=== PATIENT | female | born 1955 | race African-American/Black ===

== ENCOUNTER 2021-06-02 07:59 | Inpatient (IN) | payer BC, OTHER ==
[2021-06-02] VITALS (52 sets, daily range): BP systolic 107–179; BP diastolic 44–116
[~2021-06-02] VITALS: Ht 172.7 cm; Wt 81.6 kg
[2021-06-02] MEDS ORDERED: SODIUM CHLORIDE 0.9% 1,000 ML IV ONE (08:30)
[2021-06-02 08:40] LABS: BASOPHILS % 0.4 % (0.0-2.0); EOSINOPHILS % 0.2 % (0.0-5.0); HEMATOCRIT. 37.4 % (36.0-48.0); HEMOGLOBIN. 12.4 g/dL (12.0-16.0); MEAN CORPUSCULAR HEMOGLOBIN 29.9 pg (28.0-32.0); MEAN CORPUSCULAR VOLUME 90.3 fL (81.0-99.0); MEAN PLATELET VOLUME 8.1 fl (7.4-10.4); MONOCYTES % 3.7 % (2.0-8.0); NEUTROPHILS % 86.7 % (40.0-76.0); PLATELET 376 x1000/uL (130-400); RED BLOOD CELL COUNT 4.14 mill/uL (4.2-5.4); RED CELL DISTRIBUTION WIDTH 13.9 % (11.6-14.6)
[2021-06-02 08:45] LABS: CHLORIDE 100 mEq/L (98-107)
[2021-06-02] MEDS ORDERED: LABETALOL HCL 20MG/4ML CARPUJECT IV ONE (08:45)
[2021-06-02] MEDS ORDERED: LABETALOL HCL 100 MG in DEXT 5% WATER 80 ML IV STA (08:49)
[2021-06-02 08:51] LABS: INR 0.9; PROTHROMBIN TIME 10.2 sec (9.6-11.0)
[2021-06-02] MEDS ORDERED: LABETALOL HCL 100 MG in DEXT 5% WATER 80 ML IV PRN (09:00)
[2021-06-02] MEDS ORDERED: DEXAMETHASONE 10 MG/ML VIAL IV ONE (09:00)
[2021-06-02] MEDS ORDERED: MANNITOL 20% (20GM/100ML) BAG 500ML PREMIX IV ONE (09:00)
[2021-06-02] MEDS ORDERED: LEVETIRACETAM 1000MG PREMIX 100 ML IV ONE (09:00)
[2021-06-02] MEDS ORDERED: LABETALOL 5MG/ML SYR 20 MG/4 ML SYRINGE IV SCH (09:00)
[2021-06-02] MEDS ORDERED: NICARDIPINE 100 MG in SODIUM CHLORIDE 0.9% 60 ML IV STA (09:06)
[2021-06-02] MEDS ORDERED: MANNITOL 20% 500 ML IV SCH (09:15)
[2021-06-02] MEDS ORDERED: DILTIAZEM HCL 5MG/ML 5ML VIAL IV ONE (09:15)
[2021-06-02 09:44] LABS: CLARITY URINE CLEAR (CLEAR); COLOR URINE YELLOW (YELLOW); KETONES URINE NEGATIVE (NEGATIVE); LEUKOCYTE ESTERASE URINE NEGATIVE (NEGATIVE); NITRITE URINE NEGATIVE (NEGATIVE); OCCULT BLOOD URINE TRACE (NEGATIVE); PROTEIN URINE 4+ (NEGATIVE); SPECIFIC GRAVITY URINE 1.017 (1.005-1.030); UROBILINOGEN URINE 0.2 E.U./dL (0.2-1.0)
[2021-06-02] MEDS ORDERED: ONDANSETRON HCL 4MG/2ML INJ IV ONE (10:15)
[2021-06-02] MEDS: DEXT 5%/LACTATED RINGERS 1,000 ML IV SCH (10:29)
[2021-06-02] MEDS: LABETALOL 5MG/ML SYR 20 MG/4 ML SYRINGE IV PRN ×4 (11:47→21:26)
[2021-06-02] MEDS ORDERED: IPRATROPIUM/ALBUTEROL 0.5-3(2.5)MG/3ML NEB HHN PRN (12:00)
[2021-06-02] MEDS ORDERED: ONDANSETRON HCL 4MG/2ML INJ IV PRN (12:15)
[2021-06-02] MEDS ORDERED: ACETAMINOPHEN 650MG SUPP PR PRN (12:15)
[2021-06-02] MEDS ORDERED: IPRATROPIUM/ALBUTEROL 0.5-3(2.5)MG/3ML NEB NEB PRN (12:15)
[2021-06-02] MEDS ORDERED: NITROGLYCERIN 0.4MG TABLET SL SL PRN (12:15)
[2021-06-02] MEDS ORDERED: PIPERACILLIN/TAZ 3.375G PREMIX 50 ML IV NR (12:30)
[2021-06-02] MEDS: DEXAMETHASONE 4MG/ML 1ML VIAL IV SCH ×2 (12:35→18:13)
[2021-06-02 12:42] LABS: *BARBITURATES SCREEN URINE NEGATIVE (NEGATIVE)
[2021-06-02 12:43] LABS: *AMPHETAMINES SCREEN URINE NEGATIVE (NEGATIVE); *BENZODIAZEPINES SCREEN URINE NEGATIVE (NEGATIVE); *COCAINE SCREEN URINE NEGATIVE (NEGATIVE); METHADONE URINE SCREEN NEGATIVE (NEGATIVE); OPIATES URINE SCREEN NEGATIVE (NEGATIVE); PHENCYCLIDINE URINE SCREEN NEGATIVE (NEGATIVE)
[2021-06-02 12:44] LABS: CANNABINOID URINE SCREEN NEGATIVE (NEGATIVE)
[2021-06-02 13:21] LABS: T4 FREE 1.05 ng/dL (0.76-1.46)
[2021-06-02 14:38] LABS: FOLIC ACID (FOLATE) SERUM 14.3 ng/mL (>5.38)
[2021-06-02] MEDS: NICARDIPINE 100 MG in SODIUM CHLORIDE 0.9% 60 ML IV SCH ×2 (14:47→21:43)
[2021-06-02 17:02] LABS: CREATINE KINASE 311 IU/L (26-192)
[2021-06-02 17:03] LABS: CREATINE KINASE MB FRACTION 2.2 ng/mL (0.5-3.6)
[2021-06-02] MEDS: MORPHINE SULFATE 2 MG/ML CPJ (NOT FOR IM USE) IV PRN ×2 (17:13→21:17)
[2021-06-02] MEDS ORDERED: NICARDIPINE 100 MG in SODIUM CHLORIDE 0.9% 60 ML IV PRN (20:00)
[2021-06-02] MEDS ORDERED: LEVETIRACETAM 500MG PREMIX 100 ML IV SCH (21:00)
[2021-06-02] MEDS ORDERED: DEXTROSE 50% WATER 50ML SYRINGE IV PRN (21:00)
[2021-06-02] MEDS ORDERED: PIPERACILLIN/TAZOBACTAM 3.375 G in DEXTROSE 5% WATER 50 ML IV SCH (21:00)
[2021-06-02] MEDS: BLOOD SUGAR DIAGNOSTIC STRIP TEST SCH (21:00)
[2021-06-02] MEDS ORDERED: MIDAZOLAM HCL 100 MG in SODIUM CHLORIDE 0.9% 80 ML IV PRN (21:45)
[2021-06-02] MEDS ORDERED: FENTANYL CITRATE/PF 2,500 MCG in SODIUM CHLORIDE 0.9% 200 ML IV PRN (21:45)
[2021-06-02] MEDS: NICARDIPINE 100 MG in SODIUM CHLORIDE 0.9% 60 ML IV PRN ×2 (21:45→22:08)
[2021-06-02] MEDS ORDERED: PHENYLEPHRINE 100 MG in DEXT 5% WATER 240 ML IV PRN (21:45)
[2021-06-02] MEDS ORDERED: ETOMIDATE 2MG/ML 10ML VIAL IV NR (22:00)
[2021-06-02] MEDS ORDERED: VECURONIUM BROMIDE 10 MG/VIAL IV NR (22:00)
[2021-06-02] MEDS: PROPOFOL 10MG/ML 100ML 100 ML IV PRN (22:05)
[2021-06-02] MEDS: INSULIN LISPRO 100 UNITS/ML SUBCUT SCH (22:44)
[2021-06-02 23:05] LABS: BG BASE EXCESS -5.7 mmol/L (-2.0-2.0); BG CARBOXYHEMOGLOBIN 0.3 % (0.5-1.5); BG FRACTION INSPIRED OXYGEN 40; BG HCO3 ACT 19.4 mmol/L (22.0-26.0); BG METHEMOGLOBIN 0.3 % (0.0-1.5); BG OXYHEMOGLOBIN 96.4 % (94.0-97.0); BG PCO2 36.4 mmHg (35.0-45.0); BG PH 7.344 (7.350-7.450); BG PO2 96.7 mmHg (75.0-100.0); BG SAMPLE SITE RIGHT RADIAL; BG TOTAL HEMOGLOBIN 11.7 g/dL (12.0-18.0); BG TOTAL RESPIRATORY RATE 25 b/min; BG VENT MODE VENT - AC
[2021-06-02] MEDS ORDERED: MORPHINE SULFATE 2 MG/ML CPJ (NOT FOR IM USE) IV SCH (23:15)
[2021-06-03] VITALS (94 sets, daily range): BP systolic 118–149; BP diastolic 54–75
[2021-06-03 00:32] LABS: CREATINE KINASE MB FRACTION 3.4 ng/mL (0.5-3.6)
[2021-06-03] MEDS: DEXAMETHASONE 4MG/ML 1ML VIAL IV SCH ×2 (00:46→05:59)
[2021-06-03] MEDS ORDERED: AMLO1TAB15 MT (02:04)
[2021-06-03] MEDS: LABETALOL 5MG/ML SYR 20 MG/4 ML SYRINGE IV PRN ×2 (02:10→05:41)
[2021-06-03] MEDS: MORPHINE SULFATE 2 MG/ML CPJ (NOT FOR IM USE) IV PRN ×3 (02:10→14:15)
[2021-06-03] MEDS: DEXT 5%/LACTATED RINGERS 1,000 ML IV SCH (02:16)
[2021-06-03] MEDS: PROPOFOL 10MG/ML 100ML 100 ML IV PRN ×5 (02:20→20:34)
[2021-06-03] MEDS: NICARDIPINE 100 MG in SODIUM CHLORIDE 0.9% 60 ML IV PRN ×3 (05:21→20:04)
[2021-06-03 05:55] LABS: CHLORIDE 97 mEq/L (98-107)
[2021-06-03 06:00] LABS: BASOPHILS % 0.1 % (0.0-2.0); EOSINOPHILS % 0.3 % (0.0-5.0); HEMOGLOBIN. 10.8 g/dL (12.0-16.0); LYMPHOCYTES % 5.1 % (20.0-50.0); MEAN CORPUSCULAR HEMOGLOBIN 30.2 pg (28.0-32.0); MEAN CORPUSCULAR VOLUME 91.8 fL (81.0-99.0); MEAN PLATELET VOLUME 9.5 fl (7.4-10.4); NEUTROPHILS % 88.5 % (40.0-76.0); PLATELET 309 x1000/uL (130-400); RED BLOOD CELL COUNT 3.59 mill/uL (4.2-5.4); RED CELL DISTRIBUTION WIDTH 14.2 % (11.6-14.6)
[2021-06-03 06:05] LABS: PHOSPHORUS 2.7 mg/dL (2.5-4.9)
[2021-06-03 06:07] LABS: LDL CHOLESTEROL 117 mg/dL (5-100)
[2021-06-03 06:09] LABS: HDL CHOLESTEROL 66 mg/dL (40-59)
[2021-06-03] MEDS: BLOOD SUGAR DIAGNOSTIC STRIP TEST SCH ×4 (06:09→21:00)
[2021-06-03] MEDS: INSULIN LISPRO 100 UNITS/ML SUBCUT SCH ×4 (06:12→21:12)
[2021-06-03 08:12] LABS: BG BASE EXCESS -6.2 mmol/L (-2.0-2.0); BG CARBOXYHEMOGLOBIN 0.3 % (0.5-1.5); BG DEOXYHEMOGLOBIN 4.6 % (0.0-5.0); BG HCO3 ACT 18.5 mmol/L (22.0-26.0); BG METHEMOGLOBIN 0.3 % (0.0-1.5); BG OXYGEN SATURATION 95.4 % (92.0-98.5); BG OXYHEMOGLOBIN 94.8 % (94.0-97.0); BG PCO2 33.5 mmHg (35.0-45.0); BG PO2 78.7 mmHg (75.0-100.0); BG SAMPLE SITE RIGHT RADIAL; BG TOTAL HEMOGLOBIN 10.4 g/dL (12.0-18.0); BG VENT MODE VENT - AC
[2021-06-03] MEDS ORDERED: IPRATROPIUM/ALBUTEROL 0.5-3(2.5)MG/3ML NEB HHN PRN (08:15)
[2021-06-03] MEDS ORDERED: LIDOCAINE HCL 1% 20ML VIAL (Pyxis) INJ ONE (08:29)
[2021-06-03] MEDS: LEVETIRACETAM 500MG PREMIX 100 ML IV SCH ×2 (08:37→20:59)
[2021-06-03] MEDS: PIPERACILLIN/TAZOBACTAM 3.375 G in DEXTROSE 5% WATER 50 ML IV SCH ×2 (08:37→20:59)
[2021-06-03] MEDS ORDERED: INSULIN GLARGINE UD 100 UNITS/ML SYR SUBCUT SCH (10:00)
[2021-06-03] MEDS ORDERED: NALOXONE HCL 0.4MG/ML VIAL IV PRN (12:15)
[2021-06-03] MEDS: IPRATROPIUM/ALBUTEROL 0.5-3(2.5)MG/3ML NEB HHN SCH ×2 (12:27→20:24)
[2021-06-03] MEDS: SODIUM CHLORIDE 0.45% 1,000 ML IV SCH (12:31)
[2021-06-03] MEDS ORDERED: VECURONIUM BROMIDE 10 MG/VIAL IV ONE (13:54)
[2021-06-03] MEDS ORDERED: ETOMIDATE 2MG/ML 10ML VIAL IV ONE (13:54)
[2021-06-03 14:57] LABS: HEPATITIS B SURFACE ANTIGEN NEGATIVE
[2021-06-03] MEDS ORDERED: INSULIN GLARGINE UD 100 UNITS/ML SYR SUBCUT NR (15:30)
[2021-06-03] MEDS: ACETAMINOPHEN 650MG SUPP PR PRN (17:19)
[2021-06-04] VITALS (84 sets, daily range): BP systolic 116–149; BP diastolic 40–82
[2021-06-04] MEDS: MORPHINE SULFATE 2 MG/ML CPJ (NOT FOR IM USE) IV PRN ×3 (00:26→05:25)
[2021-06-04] MEDS: LABETALOL 5MG/ML SYR 20 MG/4 ML SYRINGE IV PRN ×3 (00:26→05:25)
[2021-06-04] MEDS: IPRATROPIUM/ALBUTEROL 0.5-3(2.5)MG/3ML NEB HHN SCH ×4 (00:39→20:15)
[2021-06-04] MEDS ORDERED: PROPOFOL 10MG/ML 100ML 100 ML IV PRN ×3 (00:45→09:09)
[2021-06-04] MEDS: NICARDIPINE 100 MG in SODIUM CHLORIDE 0.9% 60 ML IV PRN ×3 (05:24→20:17)
[2021-06-04] MEDS: BLOOD SUGAR DIAGNOSTIC STRIP TEST SCH ×3 (06:05→17:41)
[2021-06-04 06:09] LABS: HEMATOCRIT. 32.2 % (36.0-48.0); HEMOGLOBIN. 10.8 g/dL (12.0-16.0); MEAN CORPUSCULAR HEMOGLOBIN 30.8 pg (28.0-32.0); MEAN CORPUSCULAR VOLUME 91.3 fL (81.0-99.0); MEAN PLATELET VOLUME 8.7 fl (7.4-10.4); PLATELET 277 x1000/uL (130-400); RED BLOOD CELL COUNT 3.52 mill/uL (4.2-5.4); RED CELL DISTRIBUTION WIDTH 14.3 % (11.6-14.6)
[2021-06-04] MEDS: INSULIN LISPRO 100 UNITS/ML SUBCUT SCH ×3 (06:12→17:46)
[2021-06-04] MEDS: PIPERACILLIN/TAZOBACTAM 3.375 G in DEXTROSE 5% WATER 50 ML IV SCH ×2 (08:39→20:18)
[2021-06-04] MEDS: LEVETIRACETAM 500MG PREMIX 100 ML IV SCH ×2 (08:39→20:17)
[2021-06-04] MEDS: PANTOPRAZOLE SODIUM 40 MG/VIAL IV SCH ×2 (08:39→09:00)
[2021-06-04] MEDS: SODIUM CHLORIDE 0.45% 1,000 ML IV SCH (08:40)
[2021-06-04 08:52] LABS: BG DEOXYHEMOGLOBIN 5.6 % (0.0-5.0); BG FRACTION INSPIRED OXYGEN 40; BG METHEMOGLOBIN 0.2 % (0.0-1.5); BG OXYGEN SATURATION 94.4 % (92.0-98.5); BG OXYHEMOGLOBIN 94.2 % (94.0-97.0); BG PCO2 41.5 mmHg (35.0-45.0); BG PH 7.301 (7.350-7.450); BG PO2 75.4 mmHg (75.0-100.0); BG SAMPLE SITE RIGHT RADIAL; BG TOTAL HEMOGLOBIN 12.4 g/dL (12.0-18.0); BG VENT MODE VENT - AC
[2021-06-04 10:00] LABS: PLATELET ESTIMATE NORMAL
[2021-06-04] MEDS: FUROSEMIDE 40MG/4ML VIAL IVP SCH (10:14)
[2021-06-04] MEDS: INSULIN GLARGINE UD 100 UNITS/ML SYR SUBCUT SCH (10:17)
[2021-06-04] MEDS ORDERED: INSULIN LISPRO 100 UNITS/ML SUBCUT SCH (17:45)
[2021-06-05] VITALS (91 sets, daily range): BP systolic 121–160; BP diastolic 50–74
[2021-06-05] MEDS: IPRATROPIUM/ALBUTEROL 0.5-3(2.5)MG/3ML NEB HHN SCH ×4 (00:16→20:46)
[2021-06-05] MEDS: INSULIN LISPRO 100 UNITS/ML SUBCUT SCH ×5 (00:28→23:25)
[2021-06-05] MEDS: BLOOD SUGAR DIAGNOSTIC STRIP TEST SCH ×5 (00:29→23:19)
[2021-06-05] MEDS: LABETALOL 5MG/ML SYR 20 MG/4 ML SYRINGE IV PRN ×2 (01:58→14:35)
[2021-06-05] MEDS: NICARDIPINE 100 MG in SODIUM CHLORIDE 0.9% 60 ML IV PRN ×4 (02:05→22:13)
[2021-06-05] MEDS: MORPHINE SULFATE 2 MG/ML CPJ (NOT FOR IM USE) IV PRN ×5 (03:30→22:59)
[2021-06-05] MEDS: SODIUM CHLORIDE 0.45% 1,000 ML IV SCH (06:21)
[2021-06-05 08:09] LABS: ANTI-NUCLEAR ANTIBODIES DIRECT Negative (Negative)
[2021-06-05 08:16] LABS: BG BASE EXCESS 1.2 mmol/L (-2.0-2.0); BG CARBOXYHEMOGLOBIN 0.1 % (0.5-1.5); BG DEOXYHEMOGLOBIN 3.1 % (0.0-5.0); BG HCO3 ACT 25.5 mmol/L (22.0-26.0); BG METHEMOGLOBIN 0.1 % (0.0-1.5); BG OXYGEN SATURATION 96.9 % (92.0-98.5); BG OXYHEMOGLOBIN 96.7 % (94.0-97.0); BG PCO2 39.4 mmHg (35.0-45.0); BG PH 7.429 (7.350-7.450); BG PO2 89.6 mmHg (75.0-100.0); BG SAMPLE SITE RIGHT RADIAL; BG TOTAL HEMOGLOBIN 10.9 g/dL (12.0-18.0); BG TOTAL RESPIRATORY RATE 17 b/min; BG VENT MODE VENT - AC
[2021-06-05] MEDS: PANTOPRAZOLE SODIUM 40 MG/VIAL IV SCH (08:25)
[2021-06-05] MEDS: FUROSEMIDE 40MG/4ML VIAL IVP SCH (08:25)
[2021-06-05] MEDS: PIPERACILLIN/TAZOBACTAM 3.375 G in DEXTROSE 5% WATER 50 ML IV SCH ×2 (08:25→21:59)
[2021-06-05] MEDS: LEVETIRACETAM 500MG PREMIX 100 ML IV SCH ×2 (08:35→22:01)
[2021-06-05] MEDS: DEXT 5%/LACTATED RINGERS 1,000 ML IV SCH (10:31)
[2021-06-05] MEDS: INSULIN GLARGINE UD 100 UNITS/ML SYR SUBCUT SCH (10:32)
[2021-06-05 11:19] LABS: HEMATOCRIT. 31.1 % (36.0-48.0); HEMOGLOBIN. 10.2 g/dL (12.0-16.0); MEAN CORPUSCULAR HEMOGLOBIN 29.7 pg (28.0-32.0); MEAN CORPUSCULAR VOLUME 90.6 fL (81.0-99.0); MEAN PLATELET VOLUME 8.6 fl (7.4-10.4); PLATELET 276 x1000/uL (130-400); RED BLOOD CELL COUNT 3.44 mill/uL (4.2-5.4); RED CELL DISTRIBUTION WIDTH 13.7 % (11.6-14.6)
[2021-06-05 12:12] LABS: PLATELET ESTIMATE NORMAL
[2021-06-06] VITALS (95 sets, daily range): BP systolic 105–153; BP diastolic 54–90
[2021-06-06] MEDS: IPRATROPIUM/ALBUTEROL 0.5-3(2.5)MG/3ML NEB HHN SCH ×4 (00:42→20:49)
[2021-06-06] MEDS: LABETALOL 5MG/ML SYR 20 MG/4 ML SYRINGE IV PRN ×2 (02:51→18:54)
[2021-06-06] MEDS: ACETAMINOPHEN 650MG SUPP PR PRN (03:00)
[2021-06-06] MEDS: MORPHINE SULFATE 2 MG/ML CPJ (NOT FOR IM USE) IV PRN (04:46)
[2021-06-06 05:23] LABS: HEMATOCRIT. 29.7 % (36.0-48.0); HEMOGLOBIN. 10.2 g/dL (12.0-16.0); MEAN CORPUSCULAR HEMOGLOBIN 30.8 pg (28.0-32.0); MEAN CORPUSCULAR VOLUME 89.9 fL (81.0-99.0); MEAN PLATELET VOLUME 8.4 fl (7.4-10.4); PLATELET 271 x1000/uL (130-400); RED BLOOD CELL COUNT 3.31 mill/uL (4.2-5.4)
[2021-06-06] MEDS: BLOOD SUGAR DIAGNOSTIC STRIP TEST SCH ×3 (06:00→17:02)
[2021-06-06] MEDS: DEXT 5%/LACTATED RINGERS 1,000 ML IV SCH (06:30)
[2021-06-06] MEDS: INSULIN LISPRO 100 UNITS/ML SUBCUT SCH ×3 (07:45→17:05)
[2021-06-06 08:06] LABS: PLATELET ESTIMATE NORMAL
[2021-06-06] MEDS: FUROSEMIDE 40MG/4ML VIAL IVP SCH (08:06)
[2021-06-06] MEDS: PANTOPRAZOLE SODIUM 40 MG/VIAL IV SCH (08:06)
[2021-06-06] MEDS: PIPERACILLIN/TAZOBACTAM 3.375 G in DEXTROSE 5% WATER 50 ML IV SCH ×2 (08:07→20:58)
[2021-06-06] MEDS: LEVETIRACETAM 500MG PREMIX 100 ML IV SCH ×2 (08:07→20:53)
[2021-06-06 08:37] LABS: BG BASE EXCESS -0.5 mmol/L (-2.0-2.0); BG FRACTION INSPIRED OXYGEN 40; BG HCO3 ACT 23.7 mmol/L (22.0-26.0); BG PCO2 37.8 mmHg (35.0-45.0); BG PH 7.416 (7.350-7.450); BG PO2 77.2 mmHg (75.0-100.0); BG SAMPLE SITE RIGHT RADIAL; BG VENT MODE VENT - AC
[2021-06-06] MEDS ORDERED: HYDRALAZINE 20MG/ML VIAL IV SCH (10:30)
[2021-06-06] MEDS: HYDRALAZINE HCL 50MG TABLET PO SCH ×2 (11:41→23:18)
[2021-06-06] MEDS: METOPROLOL TARTRATE 25MG TABLET PO SCH ×2 (11:41→20:58)
[2021-06-06] MEDS: AMLODIPINE 10MG TABLET PO SCH (11:41)
[2021-06-06] MEDS: NICARDIPINE 100 MG in SODIUM CHLORIDE 0.9% 60 ML IV PRN (12:58)
[2021-06-06] MEDS: CLONIDINE HCL 0.3MG/24HR PATCH TD SCH (14:17)
[2021-06-07] VITALS (96 sets, daily range): BP systolic 114–166; BP diastolic 58–84
[2021-06-07] MEDS: IPRATROPIUM/ALBUTEROL 0.5-3(2.5)MG/3ML NEB HHN SCH ×4 (00:39→21:01)
[2021-06-07] MEDS: MORPHINE SULFATE 2 MG/ML CPJ (NOT FOR IM USE) IV PRN ×2 (00:59→10:46)
[2021-06-07] MEDS: INSULIN LISPRO 100 UNITS/ML SUBCUT SCH ×5 (01:12→23:58)
[2021-06-07] MEDS: ACETAMINOPHEN 650MG/20.3ML UDC NG PRN (04:59)
[2021-06-07] MEDS: HYDRALAZINE HCL 50MG TABLET PO SCH ×3 (05:00→21:19)
[2021-06-07 05:16] LABS: HEMATOCRIT. 30.2 % (36.0-48.0); HEMOGLOBIN. 9.9 g/dL (12.0-16.0); MEAN CORPUSCULAR HEMOGLOBIN 29.6 pg (28.0-32.0); MEAN CORPUSCULAR VOLUME 90.4 fL (81.0-99.0); MEAN PLATELET VOLUME 8.5 fl (7.4-10.4); PLATELET 290 x1000/uL (130-400); RED BLOOD CELL COUNT 3.34 mill/uL (4.2-5.4); RED CELL DISTRIBUTION WIDTH 13.8 % (11.6-14.6)
[2021-06-07] MEDS: LABETALOL 5MG/ML SYR 20 MG/4 ML SYRINGE IV PRN (06:36)
[2021-06-07] MEDS: BLOOD SUGAR DIAGNOSTIC STRIP TEST SCH ×5 (06:46→23:58)
[2021-06-07 07:52] LABS: BG BASE EXCESS 2.2 mmol/L (-2.0-2.0); BG CARBOXYHEMOGLOBIN 0.3 % (0.5-1.5); BG DEOXYHEMOGLOBIN 4.1 % (0.0-5.0); BG HCO3 ACT 26.4 mmol/L (22.0-26.0); BG METHEMOGLOBIN 0.2 % (0.0-1.5); BG OXYGEN SATURATION 95.9 % (92.0-98.5); BG OXYHEMOGLOBIN 95.4 % (94.0-97.0); BG PCO2 39.9 mmHg (35.0-45.0); BG PH 7.439 (7.350-7.450); BG PO2 82.2 mmHg (75.0-100.0); BG SAMPLE SITE RIGHT RADIAL; BG TOTAL HEMOGLOBIN 11.6 g/dL (12.0-18.0); BG VENT MODE VENT - AC
[2021-06-07] MEDS: PIPERACILLIN/TAZOBACTAM 3.375 G in DEXTROSE 5% WATER 50 ML IV SCH ×2 (08:45→21:19)
[2021-06-07 08:53] LABS: PLATELET ESTIMATE NORMAL
[2021-06-07] MEDS: LEVETIRACETAM 500MG PREMIX 100 ML IV SCH ×2 (08:54→20:09)
[2021-06-07] MEDS: PANTOPRAZOLE SODIUM 40 MG/VIAL IV SCH (08:56)
[2021-06-07] MEDS: AMLODIPINE 10MG TABLET PO SCH (08:57)
[2021-06-07] MEDS: FUROSEMIDE 40MG/4ML VIAL IVP SCH (08:57)
[2021-06-07] MEDS: METOPROLOL TARTRATE 25MG TABLET PO SCH ×2 (08:57→20:36)
[2021-06-07] MEDS: INSULIN GLARGINE UD 100 UNITS/ML SYR SUBCUT SCH (09:18)
[2021-06-07] MEDS: NICARDIPINE 100 MG in SODIUM CHLORIDE 0.9% 60 ML IV PRN (20:37)
[2021-06-08] VITALS (94 sets, daily range): BP systolic 116–162; BP diastolic 53–86
[2021-06-08] MEDS: IPRATROPIUM/ALBUTEROL 0.5-3(2.5)MG/3ML NEB HHN SCH ×4 (00:33→20:24)
[2021-06-08] MEDS: ACETAMINOPHEN 650MG/20.3ML UDC NG PRN (01:06)
[2021-06-08] MEDS: LABETALOL 5MG/ML SYR 20 MG/4 ML SYRINGE IV PRN ×2 (05:18→20:00)
[2021-06-08] MEDS: HYDRALAZINE HCL 50MG TABLET PO SCH ×3 (05:19→21:01)
[2021-06-08 05:50] LABS: HEMATOCRIT. 32.1 % (36.0-48.0); HEMOGLOBIN. 10.7 g/dL (12.0-16.0); MEAN CORPUSCULAR HEMOGLOBIN 30.4 pg (28.0-32.0); MEAN CORPUSCULAR VOLUME 91.3 fL (81.0-99.0); MEAN PLATELET VOLUME 8.4 fl (7.4-10.4); PLATELET 328 x1000/uL (130-400); RED BLOOD CELL COUNT 3.51 mill/uL (4.2-5.4); RED CELL DISTRIBUTION WIDTH 14.2 % (11.6-14.6)
[2021-06-08 06:02] LABS: PHOSPHORUS 5.9 mg/dL (2.5-4.9)
[2021-06-08] MEDS: BLOOD SUGAR DIAGNOSTIC STRIP TEST SCH ×4 (06:42→23:25)
[2021-06-08] MEDS: INSULIN LISPRO 100 UNITS/ML SUBCUT SCH ×4 (06:47→23:26)
[2021-06-08] MEDS: NICARDIPINE 100 MG in SODIUM CHLORIDE 0.9% 60 ML IV PRN ×3 (06:53→21:06)
[2021-06-08 07:34] LABS: BG BASE EXCESS 3.9 mmol/L (-2.0-2.0); BG CARBOXYHEMOGLOBIN 0.1 % (0.5-1.5); BG DEOXYHEMOGLOBIN 1.7 % (0.0-5.0); BG HCO3 ACT 28.6 mmol/L (22.0-26.0); BG METHEMOGLOBIN 0.1 % (0.0-1.5); BG OXYGEN SATURATION 98.3 % (92.0-98.5); BG OXYHEMOGLOBIN 98.1 % (94.0-97.0); BG PCO2 43.5 mmHg (35.0-45.0); BG PH 7.436 (7.350-7.450); BG PO2 118.3 mmHg (75.0-100.0); BG SAMPLE SITE RIGHT RADIAL; BG TOTAL HEMOGLOBIN 12.4 g/dL (12.0-18.0); BG VENT MODE VENT - SIMV
[2021-06-08 07:37] LABS: PLATELET ESTIMATE NORMAL
[2021-06-08] MEDS: PANTOPRAZOLE SODIUM 40 MG/VIAL IV SCH (08:13)
[2021-06-08] MEDS: AMLODIPINE 10MG TABLET PO SCH (08:13)
[2021-06-08] MEDS: LEVETIRACETAM 500MG PREMIX 100 ML IV SCH ×2 (08:13→20:00)
[2021-06-08] MEDS: CALCIUM ACETATE 667MG CAPSULE PO SCH ×3 (08:13→17:56)
[2021-06-08] MEDS: METOPROLOL TARTRATE 25MG TABLET PO SCH ×2 (08:13→20:00)
[2021-06-08] MEDS: INSULIN GLARGINE UD 100 UNITS/ML SYR SUBCUT SCH ×2 (10:00→21:00)
[2021-06-08 12:02] LABS: BG BASE EXCESS 2.4 mmol/L (-2.0-2.0); BG CARBOXYHEMOGLOBIN 0.4 % (0.5-1.5); BG DEOXYHEMOGLOBIN 2.3 % (0.0-5.0); BG HCO3 ACT 27.8 mmol/L (22.0-26.0); BG METHEMOGLOBIN 0.2 % (0.0-1.5); BG OXYGEN SATURATION 97.7 % (92.0-98.5); BG OXYHEMOGLOBIN 97.1 % (94.0-97.0); BG PCO2 46.4 mmHg (35.0-45.0); BG PH 7.396 (7.350-7.450); BG PO2 103.7 mmHg (75.0-100.0); BG SAMPLE SITE RIGHT RADIAL; BG TOTAL HEMOGLOBIN 12.2 g/dL (12.0-18.0); BG TOTAL RESPIRATORY RATE 13 b/min; BG VENT MODE VENT - CPAP
[2021-06-08] MEDS: HYDRALAZINE 20MG/ML VIAL IV PRN ×2 (15:51→22:12)
[2021-06-09] VITALS (96 sets, daily range): BP systolic 113–186; BP diastolic 39–85
[2021-06-09] MEDS: LABETALOL 5MG/ML SYR 20 MG/4 ML SYRINGE IV PRN (00:59)
[2021-06-09] MEDS: IPRATROPIUM/ALBUTEROL 0.5-3(2.5)MG/3ML NEB HHN SCH ×4 (01:06→20:27)
[2021-06-09] MEDS: NICARDIPINE 100 MG in SODIUM CHLORIDE 0.9% 60 ML IV PRN ×3 (04:46→18:18)
[2021-06-09] MEDS: HYDRALAZINE 20MG/ML VIAL IV PRN ×2 (04:48→12:02)
[2021-06-09 05:28] LABS: HEMATOCRIT. 33.9 % (36.0-48.0); HEMOGLOBIN. 11.1 g/dL (12.0-16.0); MEAN CORPUSCULAR VOLUME 91.2 fL (81.0-99.0); MEAN PLATELET VOLUME 8.4 fl (7.4-10.4); PLATELET 380 x1000/uL (130-400); RED BLOOD CELL COUNT 3.72 mill/uL (4.2-5.4); RED CELL DISTRIBUTION WIDTH 14.1 % (11.6-14.6)
[2021-06-09] MEDS: CALCIUM ACETATE 667MG CAPSULE PO SCH ×3 (06:07→17:05)
[2021-06-09] MEDS: HYDRALAZINE HCL 50MG TABLET PO SCH (06:18)
[2021-06-09] MEDS: BLOOD SUGAR DIAGNOSTIC STRIP TEST SCH ×3 (06:18→17:50)
[2021-06-09] MEDS: INSULIN LISPRO 100 UNITS/ML SUBCUT SCH ×3 (06:19→17:49)
[2021-06-09] MEDS: LEVETIRACETAM 500MG PREMIX 100 ML IV SCH ×2 (08:20→21:50)
[2021-06-09] MEDS: PANTOPRAZOLE SODIUM 40 MG/VIAL IV SCH (08:20)
[2021-06-09] MEDS: METOPROLOL TARTRATE 25MG TABLET PO SCH (08:21)
[2021-06-09] MEDS: AMLODIPINE 10MG TABLET PO SCH (08:22)
[2021-06-09 09:26] LABS: PLATELET ESTIMATE NORMAL
[2021-06-09] MEDS ORDERED: ALTEPLASE 2MG/VIAL ITC NR ×2 (09:45→10:15)
[2021-06-09] MEDS: INSULIN GLARGINE UD 100 UNITS/ML SYR SUBCUT SCH (10:02)
[2021-06-09] MEDS ORDERED: HYDRALAZINE HCL 100MG TABLET PO SCH (14:00)
[2021-06-09] MEDS: LACTULOSE 20G/30ML UDC NG PRN ×2 (17:33→22:14)
[2021-06-09] MEDS ORDERED: MINOXIDIL 2.5MG TABLET PO SCH (21:00)
[2021-06-09] MEDS: HYDRALAZINE HCL 100MG TABLET NG SCH (21:49)
[2021-06-09] MEDS: ACETAMINOPHEN 650MG/20.3ML UDC NG PRN (21:54)
[2021-06-09] MEDS: METOPROLOL TARTRATE 25MG TABLET NG SCH (22:15)
[2021-06-09] MEDS: MINOXIDIL 2.5MG TABLET NG SCH (22:57)
[2021-06-10] VITALS (48 sets, daily range): BP systolic 95–161; BP diastolic 38–78
[2021-06-10] MEDS: BLOOD SUGAR DIAGNOSTIC STRIP TEST SCH ×4 (00:58→17:36)
[2021-06-10] MEDS: INSULIN GLARGINE UD 100 UNITS/ML SYR SUBCUT SCH ×3 (00:59→21:54)
[2021-06-10] MEDS: INSULIN LISPRO 100 UNITS/ML SUBCUT SCH ×7 (01:00→17:51)
[2021-06-10] MEDS: NICARDIPINE 100 MG in SODIUM CHLORIDE 0.9% 60 ML IV PRN (01:05)
[2021-06-10] MEDS: IPRATROPIUM/ALBUTEROL 0.5-3(2.5)MG/3ML NEB HHN SCH ×4 (02:15→20:00)
[2021-06-10 05:56] LABS: HEMATOCRIT. 32.7 % (36.0-48.0); HEMOGLOBIN. 10.7 g/dL (12.0-16.0); MEAN CORPUSCULAR VOLUME 91.8 fL (81.0-99.0); PLATELET 431 x1000/uL (130-400); RED BLOOD CELL COUNT 3.56 mill/uL (4.2-5.4); RED CELL DISTRIBUTION WIDTH 14.1 % (11.6-14.6)
[2021-06-10] MEDS: HYDRALAZINE HCL 100MG TABLET NG SCH ×3 (06:00→21:52)
[2021-06-10] MEDS: CALCIUM ACETATE 667MG CAPSULE PO SCH ×4 (08:26→17:36)
[2021-06-10] MEDS: METOPROLOL TARTRATE 25MG TABLET NG SCH ×2 (08:26→21:00)
[2021-06-10] MEDS: PANTOPRAZOLE SODIUM 40 MG/VIAL IV SCH (08:26)
[2021-06-10] MEDS: AMLODIPINE 10MG TABLET NG SCH (08:26)
[2021-06-10] MEDS: LEVETIRACETAM 500MG PREMIX 100 ML IV SCH ×2 (08:27→21:53)
[2021-06-10] MEDS ORDERED: MINOXIDIL 2.5MG TABLET NG SCH (09:00)
[2021-06-10] MEDS ORDERED: METOPROLOL TARTRATE 25MG TABLET NG SCH (09:00)
[2021-06-10] MEDS: MINOXIDIL 2.5MG TABLET NG SCH ×2 (09:03→21:00)
[2021-06-10] MEDS ORDERED: BISACODYL 10MG SUPP PR PRN (10:30)
[2021-06-10] MEDS: METOCLOPRAMIDE HCL 10MG/2ML VIAL IV SCH ×3 (12:54→23:24)
[2021-06-10 18:08] LABS: PLATELET ESTIMATE INCREASED
[2021-06-11] VITALS (12 sets, daily range): BP systolic 104–138; BP diastolic 57–71
[2021-06-11] MEDS: INSULIN LISPRO 100 UNITS/ML SUBCUT SCH ×7 (00:13→17:33)
[2021-06-11] MEDS: BLOOD SUGAR DIAGNOSTIC STRIP TEST SCH ×4 (00:13→17:31)
[2021-06-11] MEDS: IPRATROPIUM/ALBUTEROL 0.5-3(2.5)MG/3ML NEB HHN SCH ×4 (02:24→20:47)
[2021-06-11] MEDS: METOCLOPRAMIDE HCL 10MG/2ML VIAL IV SCH ×3 (05:06→17:30)
[2021-06-11] MEDS: HYDRALAZINE HCL 100MG TABLET NG SCH ×3 (05:07→21:26)
[2021-06-11 07:28] LABS: PHOSPHORUS 6.5 mg/dL (2.5-4.9)
[2021-06-11] MEDS: PANTOPRAZOLE SODIUM 40 MG/VIAL IV SCH (09:23)
[2021-06-11] MEDS: CALCIUM ACETATE 667MG CAPSULE PO SCH ×3 (09:23→17:30)
[2021-06-11] MEDS: LEVETIRACETAM 500MG PREMIX 100 ML IV SCH (09:25)
[2021-06-11] MEDS: AMLODIPINE 10MG TABLET NG SCH (10:01)
[2021-06-11] MEDS: MINOXIDIL 2.5MG TABLET NG SCH ×2 (10:02→20:34)
[2021-06-11] MEDS: METOPROLOL TARTRATE 25MG TABLET NG SCH ×2 (10:02→20:34)
[2021-06-11] MEDS: INSULIN GLARGINE UD 100 UNITS/ML SYR SUBCUT SCH ×2 (11:42→21:26)
[2021-06-11] MEDS: LEVETIRACETAM 500MG/5ML CUP NG SCH (20:33)
[2021-06-11] MEDS ORDERED: LEVETIRACETAM 500MG/5ML CUP PO SCH (21:00)
[2021-06-12] VITALS (11 sets, daily range): BP systolic 101–124; BP diastolic 50–67
[2021-06-12] MEDS: METOCLOPRAMIDE HCL 10MG/2ML VIAL IV SCH ×4 (00:12→17:46)
[2021-06-12] MEDS: BLOOD SUGAR DIAGNOSTIC STRIP TEST SCH ×4 (00:19→17:56)
[2021-06-12] MEDS: INSULIN LISPRO 100 UNITS/ML SUBCUT SCH ×9 (00:26→20:07)
[2021-06-12] MEDS: IPRATROPIUM/ALBUTEROL 0.5-3(2.5)MG/3ML NEB HHN SCH ×4 (02:30→20:54)
[2021-06-12] MEDS: ACETAMINOPHEN 650MG/20.3ML UDC NG PRN (05:01)
[2021-06-12] MEDS: HYDRALAZINE HCL 100MG TABLET NG SCH ×3 (05:01→22:17)
[2021-06-12 08:11] LABS: HEMATOCRIT. 32.8 % (36.0-48.0); HEMOGLOBIN. 10.6 g/dL (12.0-16.0); MEAN CORPUSCULAR HEMOGLOBIN 29.4 pg (28.0-32.0); MEAN CORPUSCULAR VOLUME 90.7 fL (81.0-99.0); PLATELET 430 x1000/uL (130-400); RED BLOOD CELL COUNT 3.62 mill/uL (4.2-5.4)
[2021-06-12] MEDS: CALCIUM ACETATE 667MG CAPSULE PO SCH ×3 (08:57→17:46)
[2021-06-12] MEDS: PANTOPRAZOLE SODIUM 40 MG/VIAL IV SCH (09:06)
[2021-06-12] MEDS: LEVETIRACETAM 500MG/5ML CUP NG SCH ×2 (09:06→21:49)
[2021-06-12] MEDS: METOPROLOL TARTRATE 25MG TABLET NG SCH ×2 (09:08→21:36)
[2021-06-12] MEDS: AMLODIPINE 10MG TABLET NG SCH (09:08)
[2021-06-12] MEDS: MINOXIDIL 2.5MG TABLET NG SCH ×2 (09:08→21:35)
[2021-06-12] MEDS: INSULIN GLARGINE UD 100 UNITS/ML SYR SUBCUT SCH ×2 (10:04→22:20)
[2021-06-12 17:46] LABS: PLATELET ESTIMATE INCREASED
[2021-06-12] MEDS ORDERED: INSULIN GLARGINE UD 100 UNITS/ML SYR SUBCUT SCH (23:00)
[2021-06-13] VITALS: BP 116/67
[2021-06-13] MEDS: BLOOD SUGAR DIAGNOSTIC STRIP TEST SCH ×5 (00:23→23:35)
[2021-06-13] MEDS: METOCLOPRAMIDE HCL 10MG/2ML VIAL IV SCH ×5 (00:23→23:35)
[2021-06-13] MEDS: INSULIN LISPRO 100 UNITS/ML SUBCUT SCH ×9 (00:23→23:37)
[2021-06-13] MEDS: IPRATROPIUM/ALBUTEROL 0.5-3(2.5)MG/3ML NEB HHN SCH ×4 (01:40→21:26)
[2021-06-13 04:00] VITALS: BP 117/70
[2021-06-13] MEDS: HYDRALAZINE HCL 100MG TABLET NG SCH ×3 (06:52→21:39)
[2021-06-13 08:00] VITALS: BP 123/62
[2021-06-13] MEDS: FAMOTIDINE 20MG/2ML VIAL IV SCH (08:21)
[2021-06-13] MEDS: LEVETIRACETAM 500MG/5ML CUP NG SCH ×2 (08:21→21:38)
[2021-06-13] MEDS: METOPROLOL TARTRATE 25MG TABLET NG SCH ×2 (08:23→21:38)
[2021-06-13] MEDS: CALCIUM ACETATE 667MG CAPSULE PO SCH ×3 (08:23→17:34)
[2021-06-13] MEDS: MINOXIDIL 2.5MG TABLET NG SCH ×2 (08:24→21:37)
[2021-06-13] MEDS: AMLODIPINE 10MG TABLET NG SCH (08:24)
[2021-06-13] MEDS: CLONIDINE HCL 0.3MG/24HR PATCH TD SCH (08:25)
[2021-06-13] MEDS: INSULIN GLARGINE UD 100 UNITS/ML SYR SUBCUT SCH (10:21)
[2021-06-13 11:22] LABS: HEMATOCRIT. 31.4 % (36.0-48.0); HEMOGLOBIN. 10.5 g/dL (12.0-16.0); MEAN CORPUSCULAR HEMOGLOBIN 30.6 pg (28.0-32.0); MEAN CORPUSCULAR VOLUME 91.3 fL (81.0-99.0); MEAN PLATELET VOLUME 7.4 fl (7.4-10.4); PLATELET 393 x1000/uL (130-400); RED BLOOD CELL COUNT 3.44 mill/uL (4.2-5.4)
[2021-06-13 12:00] VITALS: BP 98/53
[2021-06-13 15:23] LABS: PLATELET ESTIMATE NORMAL
[2021-06-13 16:00] VITALS: BP 124/67
[2021-06-13] MEDS: LACTULOSE 20G/30ML UDC NG PRN (18:39)
[2021-06-13 20:00] VITALS: BP 131/67
[2021-06-13] MEDS ORDERED: INSULIN GLARGINE UD 100 UNITS/ML SYR SUBCUT SCH (22:00)
[2021-06-13] MEDS: ACETAMINOPHEN 650MG/20.3ML UDC NG PRN (23:34)
[2021-06-14] VITALS (7 sets, daily range): BP systolic 97–135; BP diastolic 46–63
[2021-06-14] MEDS: IPRATROPIUM/ALBUTEROL 0.5-3(2.5)MG/3ML NEB HHN SCH ×4 (01:27→20:11)
[2021-06-14] MEDS: METOCLOPRAMIDE HCL 10MG/2ML VIAL IV SCH ×3 (05:47→17:39)
[2021-06-14] MEDS: HYDRALAZINE HCL 100MG TABLET NG SCH ×2 (05:47→14:20)
[2021-06-14] MEDS: INSULIN LISPRO 100 UNITS/ML SUBCUT SCH ×6 (05:49→17:41)
[2021-06-14] MEDS: BLOOD SUGAR DIAGNOSTIC STRIP TEST SCH ×3 (06:53→17:22)
[2021-06-14 08:32] LABS: BASOPHILS % 0.2 % (0.0-2.0); HEMATOCRIT. 29.7 % (36.0-48.0); HEMOGLOBIN. 9.9 g/dL (12.0-16.0); LYMPHOCYTES % 7.7 % (20.0-50.0); MEAN CORPUSCULAR HEMOGLOBIN 30.3 pg (28.0-32.0); MEAN PLATELET VOLUME 7.8 fl (7.4-10.4); MONOCYTES % 5.9 % (2.0-8.0); NEUTROPHILS % 85.2 % (40.0-76.0); PLATELET 351 x1000/uL (130-400); RED BLOOD CELL COUNT 3.26 mill/uL (4.2-5.4); RED CELL DISTRIBUTION WIDTH 14.2 % (11.6-14.6)
[2021-06-14] MEDS: LEVETIRACETAM 500MG/5ML CUP NG SCH (08:42)
[2021-06-14] MEDS: CALCIUM ACETATE 667MG CAPSULE PO SCH ×3 (08:42→17:39)
[2021-06-14] MEDS: FAMOTIDINE 20MG/2ML VIAL IV SCH (08:42)
[2021-06-14] MEDS: MINOXIDIL 2.5MG TABLET NG SCH (08:43)
[2021-06-14] MEDS: AMLODIPINE 10MG TABLET NG SCH (08:43)
[2021-06-14] MEDS: METOPROLOL TARTRATE 25MG TABLET NG SCH ×2 (08:43→20:00)
[2021-06-14] MEDS: INSULIN GLARGINE UD 100 UNITS/ML SYR SUBCUT SCH (11:03)
[2021-06-14] MEDS: LACTULOSE 20G/30ML UDC NG PRN (17:39)
== END 2021-06-14 23:26 | disposition short-term general hospital (02) | DRG 64 ==
LOC: ER 07:59 → MICUSO 11:08 → EDBEDREQ 11:20 → EDBEDREQTM 11:20 → ENRESERV 12:30 → 5EST 06-10 12:10
PROVIDERS: ADMIT Internal Medicine; ATTEND Internal Medicine
PROC: 0BH17EZ Insertion of Endotracheal Airway into Trachea, Via Natural or Artificial Opening (ICD-10-PCS; principal; 2021-06-02)
PROC: 5A1955Z Respiratory Ventilation, Greater than 96 Consecutive Hours (ICD-10-PCS; 2021-06-02)
PROC: 02HV33Z Insertion of Infusion Device into Superior Vena Cava, Percutaneous Approach (ICD-10-PCS; 2021-06-03)
PROC: B548ZZA Ultrasonography of Superior Vena Cava, Guidance (ICD-10-PCS; 2021-06-03)
PROC: B5181ZA Fluoroscopy of Superior Vena Cava using Low Osmolar Contrast, Guidance (ICD-10-PCS; 2021-06-03)
DX: I61.5 Nontraumatic intracerebral hemorrhage, intraventricular (principal); J96.00 Acute respiratory failure, unspecified whether with hypoxia or hypercapnia; N17.0 Acute kidney failure with tubular necrosis; G92.8 Other toxic encephalopathy; N18.4 Chronic kidney disease, stage 4 (severe); G81.94 Hemiplegia, unspecified affecting left nondominant side; E87.1 Hypo-osmolality and hyponatremia; I16.1 Hypertensive emergency; E87.2 Acidosis; R47.01 Aphasia; E66.9 Obesity, unspecified; D64.9 Anemia, unspecified; E78.5 Hyperlipidemia, unspecified; R47.02 Dysphasia; E78.00 Pure hypercholesterolemia, unspecified; C50.919 Malignant neoplasm of unspecified site of unspecified female breast; D72.829 Elevated white blood cell count, unspecified; R80.9 Proteinuria, unspecified; E11.22 Type 2 diabetes mellitus with diabetic chronic kidney disease; Z20.822 Contact with and (suspected) exposure to COVID-19; E11.65 Type 2 diabetes mellitus with hyperglycemia; Z79.4 Long term (current) use of insulin; Z85.3 Personal history of malignant neoplasm of breast; Z90.13 Acquired absence of bilateral breasts and nipples; Z68.27 Body mass index [BMI] 27.0-27.9, adult
CPT/HCPCS: 36415; 36556; 36600; 70551; 71045; 76770; 76937; 80048; 80053; 80061; 80305; 81003; 82140; 82375; 82550; 82553; 82570; 82607; 82746; 82805; 82962; 83036; 83540; 83550; 83605; 83735; 83880; 84100; 84145; 84156; 84439; 84443; 84478; 84484; 85025; 86038; 86160; 86705; 86706; 86709; 86803; 87070; 87340; 87426; 92610; 93005; 93970; 94003; 94640; 97162; 97166; 99291; A6261; C1725; C1752; C9113; J0360; J1100; J1815; J1940; J1953; J2270; J2405; J2543; J2704; J2765; J2997; J3490; J7030; J7050; J7060; J7121; U0003; U0005; A4315